=== PATIENT | female | born 1990 | race Caucasian/White ===

== ENCOUNTER → 2017-12-12 | Outpatient (CLI) | payer MEDICAID | LOC: FIMAGING 15:56 | PROVIDERS: ATTEND Orthopaedic Surgery Sports Medicine | DX: M25.852 Other specified joint disorders, left hip (principal); S73.192A Other sprain of left hip, initial encounter; M71.352 Other bursal cyst, left hip ==

== ENCOUNTER 2018-03-18 05:50 | Day surgery (SDC) | payer MEDICAID ==
--- NOTE | 2018-03-17 21:42 | PDGENHP ---
History and Physical - Chief Complaint Bilateral Hip Pain - History of Present Illness Diagnosis: 1. Bilateral~Femoroacetabular impingement (LUCINA) Cam type,~with~resultant labral tear 2. Family History of early onset Osteoarthritis (hips) HISTORY OF PRESENT ILLNESS: Sameeris a 27 y.o.~very~~active female~who I have had the pleasure to consult on today. 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 ~Sameerenjoys running, yoga, competitive volleyball (collegiate), cyclist. Lainey's~bilateral~hip pain (L>R)~started in 2012 (after running marathons), with~no~recalled trauma or injury, and with no~previous complaints. Sameer does not have~a known history of hip dysplasia. Presentation today is of~anterior~bilateral~hip pain. ~The hip~does not~wake her ~at night and does~click and catch on her. Sitting~can be a real struggle~for her.~Sameerdoes not~report suffering from lower back pain episodes. Sameerhas~participated in physical therapy (on and off for years)~and has~ tried other conservative measures including chiropractic treatments and massage therapy.~She~has not~received sufficient symptomatic improvement. Sameerhas~utilized medication for pain management, including NSAID.~ Sameerhas used medication since the pain began. Sameerunderstands that she~has a hip and pelvis problem which should be researched and wishes to get a better understanding of her~hip status, followed by an establishment of a treatment strategy, hoping sheMarkwould be able to get back to her~well being active life. History: Past medical history:~~ None which is relevant~ Relevant familial history:~Mother had bilateral VIDAL at 52/55 yrs Past surgical history:~ None Sameerhas never received general anesthesia. I have reviewed, verified and agree with the past medical, surgical, family and social history. Current Medications:~has a current medication list which includes the following prescription(s): adderall xr and multivitamin. ALLERGIES:~is allergic to sulfa (sulfonamide antibiotics). Objective: Physical Examination: Sameeris 5~feet 10~inches tall and weighs 183~Lbs. Sameeris AAO x3; she~ is well-nourished, in NAD. Skin is warm and dry. ~Breathing is non-labored. ~CV with RRR by pulse. Abdomen is soft, NTND. Currently,~she~walks with a normal~gait. Trendelenburg sign is~negative~and proprioception is normal,~both~sides. She~presents with mild~signs of joint laxity. Beightons Score:~1 Lower spine examination is~negative~for sciatic or femoral nerve irritation with negative~SLR &~femoral stretch tests. Range of motion of the spine is normal~for flexion, extension, and rotations, with no~associated pain. Strength, Sensation and pulses are~normal -~bilaterally Ankles and knees exams are~normal~and no~mal-alignment is evident. She~has no leg length discrepancy. Thigh circumference is~symmetric~with no evidence for muscle atrophy~on both~ sides. Hip ROM (degrees): FL ER At 90~hip FL IR At 90~hip FL AB AD EX IR Neutral hip ER Neutral hip R 100 45 15 40 10 5 45 30 L 100 50 10 45 5 5 45 30 Specific hip and pelvis tests: Impingement Test IRVING Roll Add. Longus R +++ +++ Negative Negative L +++ +++ Negative Negative Glut. Med ITB Posterior Imp R Negative 5/5 strength Negative 5/5 strength Negative L Negative 5/5 strength Negative 5/5 strength Negative Squeeze test measured~weak Bony Symphysis pubis is~pain free~to touch while concentric activity of the rectus abdominis, does not~produce pain at its insertion. Ilio Psos specific tests are~negative for pain during cycling for~both hips~and remarkable for non painful snap HF has~weakness, no pain~both hips. Anterior/posterior~capsule tenderness Bilateral Greater trochanteric burse is~pain free~on both hips. Piriformis tests: FAIR is~negative,~with no~local signs of neuritis related to sciatic nerve. SIJs examination is~normal~with normal~IRVING in relation and local tenderness. Hamstrings tests are~negative~functional contraction and negative~tendinopathy both hips. On a daily basis, the following percentages reflectThi's overall total pain: Deep hip:~100% Imaging: Radiology studies which I have personally reviewed, analyzed and measured are below: XR: AP of the hip and pelvis: Performed in a~good~technique Coccyx to pubic symphysis distance~2~cm. 5~degrees caudal [place] Lines are~preserved. Minimal~Pathological signs are seen in the Symphysis Pubis. Minimal~Pathological signs are seen at the Ischial tuberosity. ~ Specific measurements show: NSA~ LCE Sourcil~Angle Sharp's angle Lat. Cam Lat. Pincer C.Over~sign Head~Coverage % ATDmm R N 31 7 41 + - 12-1 N N L N 29 6 40 + - 12-12:30 N N Pos. wall sign ISS NAD ~~Dysplasia Comments R Negative Negative 7.7~mm Negative L Negative Negative 14~mm Negative Sclerosis Sup. Lat. OA Cysts Joint Space-WBZ Joint Space-Medial R Negative Negative Negative 3.3~mm 3.6~mm L Negative Negative Negative 3.6~mm 3.7~mm X Table lateral: Anterior cam lesion is~seen~on both hips. Alpha Angle: ~ Right~60~dergrees Left~78~degrees Impression and plan:Mark Estrellais a 27 y.o.~active female~suffering from symptomatic Bilateral~hip pain due to~Femoroacetabular impingement (LUCINA)~Cam type,~with~resultant labral tear~causing significant disability to her~and altering her~sport and life activities. Physical examination, imaging, and~her~story correspond with the diagnosis mentioned above. I explained that femoroacetabular impingement (LUCINA) arises due to a bony or soft tissue conflict between the femur (ball) and acetabulum (socket) caused by an abnormality in the shape of the hip joint. Over time, repetitive impingement can result in damage to the labrum and adjacent surface cartilage within the socket, ultimately giving rise to progressive osteoarthritis of the hip. I explained that although a labral tear can be a source of pain, it is rarely the root of the problem and typically occurs secondary to an underlying abnormality in the shape and mechanics of the hip joint. ~ I reviewed conservative treatment options for LUCINA including activity modification to avoid positions of impingement, physical therapy, non-steroidal anti-inflammatory medications, and various injections (corticosteroid and PRP) aimed at reducing inflammation in the hip joint or/and preventing dynamic impingement. PRP injections may promote healing and reduce symptoms in certain cases but it will not repair chronically damaged tissue. Although these measures may help to buy time and reduce current level of symptoms, they are not a definitive solution to the problem given the underlying abnormality in the shape of the hip joint. Patients who have failed conservative management and continue to experience symptoms are candidates for hip arthroscopy, a minimally invasive surgery that can definitively address the underlying problem. Hip arthroscopy typically includes treating the labrum with either repair or reconstruction of the torn labrum; as well as addressing the underlying abnormalities by restoring the normal shape to the hip joint. ~If the cartilage is damaged a Microfracture surgical procedure may also be necessary to help stimulate the growth of fibrocartilage. ~If a patient requires a labral reconstruction or a Microfracture, the initial rehabilitation from the surgery may take longer, but the long-term results are typically favorable. I reviewed the technical aspects of hip arthroscopy including risks, benefits, and expected course of recovery.~Lainey~understands that hip arthroscopy is a minimally invasive outpatient procedure carried out through small incisions on the outer aspect of the hip joint. During surgery, the labral tear will be identified and either repaired or reconstructed~using bone anchors and suture material. Additionally, any excessive bone will be removed with a high-speed yolanda to reshape the hip joint and restore normal anatomy. Risks include infection, bleeding, injury to nearby nerves or vessels, stiffness, persistent pain, instability, venous thromboembolic disease, and traction related complications including temporary foot numbness. Rarely, revision surgery may be required to address these problems. Overall recovery takes approximately 4~ 8~months depending on the extent of damage and degree of repair. In the event that the labral tissue quality is inadequate for successful repair and healing,~Lainey~understands that a labral reconstruction will be performed. This procedure entails placing a cadaver tissue graft within the hip joint and stabilizing it with bone anchors to build a new labrum. The overall recovery time for labral reconstruction is similar to that of labral repair, although the surgical procedure takes longer to perform. Lainey~will review the info presented. In order to obtain more detailed information regarding the alignment, orientation, and shape of the bony hip and pelvis I will order a CT scan to be performed. The results of the CT scan, including femoral torsion and acetabular version measured values and 3D images, will aid me in deciding on the best treatment strategy and surgical pre-planning. In order to better evaluate the soft tissues and cartilage of the hip joint, I will order an MRI scan. Sameerwill contact us if she~wishes to pursue further treatment in the future. Sameeris happy with this plan. I have also supplied~her~with handouts, outlining the expected surgical treatment and rehab involved. I wish~LaineyMarkall the best, ~~ Lakhwinder Sandoval, PAC History Information - Allergies/Home Medication List Allergies/Adverse Reactions: Sulfa (Sulfonamide Antibiotics) Allergy (Verified 02/18/18 11:01) Hives Home Medications: Adderall 10 MG (*) PRN 02/18/18 [Last Taken Unknown] Multivitamin (*) 02/18/18 [Last Taken Unknown] I have personally reviewed and updated: medical history - Social History Smoking Status: Never smoked Review of Systems Review of Systems: Physical Exam Physical Exam:
[2018-03-18] MEDS ORDERED: ACETAMINOPHEN 500 MG TAB PO ONE (06:03)
[2018-03-18] MEDS ORDERED: LIDOCAINE 1% 2 ML INJ ID PRN (06:03)
[2018-03-18] MEDS ORDERED: PREGABALIN 150 MG CAP PO ONE (06:03)
[2018-03-18] MEDS ORDERED: LR 1,000 ML IV ONE (06:03)
[2018-03-18] MEDS ORDERED: ceFAZolin 2 GM/DEXTROSE 100 ML IV ONE (06:03)
[2018-03-18] MEDS ORDERED: EPINEPHrine 30 MG/30 ML MDV (0.1 MG/0.1 ML) ONE (06:49)
[2018-03-18] MEDS ORDERED: BUPIVACAINE 0.25% 30 ML SDV ONE (06:49)
[2018-03-18] MEDS ORDERED: PROPOFOL/EMULSION 500 MG/50 ML BOTTLE IV ONE ×2 (07:15→07:37)
[2018-03-18] MEDS ORDERED: MIDAZOLAM 2 MG/2 ML VIAL ONE (07:15)
[2018-03-18] MEDS ORDERED: fentaNYL 100 MCG/2 ML INJ ONE ×2 (07:15→11:04)
[2018-03-18] MEDS ORDERED: DEXMEDETOMIDINE HCL 400 MCG in NS 100 ML IV ONE (08:00)
[2018-03-18] MEDS ORDERED: METOCLOPRAMIDE 10 MG/2 ML VIAL ONE (08:02)
[2018-03-18] MEDS ORDERED: SUGAMMADEX SODIUM 200 MG/2 ML VIAL IVP ONE (08:02)
[2018-03-18] MEDS ORDERED: ONDANSETRON 4 MG/2 ML VIAL ONE (08:02)
[2018-03-18] MEDS ORDERED: KETOROLAC 30 MG/1 ML SDV ONE (08:02)
[2018-03-18] MEDS ORDERED: RANITIDINE 50 MG/2 ML VIAL ONE (08:02)
[2018-03-18] MEDS ORDERED: ROCURONIUM 100 MG/10 ML VIAL ONE (08:02)
--- NOTE | 2018-03-18 08:04 | PDANEPAE ---
ANE Past Medical History - Cardiovascular History Hx Hypertension: No Hx Arrhythmias: Yes Hx Chest Pain: No Hx Coronary Artery / Peripheral Vascular Disease: No Hx CHF / Valvular Disease: No Hx Palpitations: No Cardiovascular History Comment: slight heart murmur, pt says it isn't always noticeable. bradycardia - Pulmonary History Hx COPD: No Hx Asthma/Reactive Airway Disease: No Hx Recent Upper Respiratory Infection: No Hx Oxygen in Use at Home: No Hx Sleep Apnea: No Sleep Apnea Screening Result - Last Documented: Negative - Neurologic History Hx Cerebrovascular Accident: No Hx Seizures: No Hx Dementia: No - Endocrine History Hx Diabetes: No - Renal History Hx Renal Disorders: No - Liver History Hx Hepatic Disorders: No - Neurological & Psychiatric Hx Hx Neurological and Psychiatric Disorders: Yes Neurological / Psychiatric History Comment: claustraphbia. hx of depression- currently no issues - Cancer History Hx Cancer: No - Congenital Disorder History Hx Congenital Disorders: No - GI History Hx Gastrointestinal Disorders: Yes Gastrointestinal History Comment: hx of gi parasites d/t being in [facility] - Other Health History Other Health History: na - Chronic Pain History Chronic Pain: Yes (bilateral hips) - Surgical History Prior Surgeries: extensive dental surgery 2008. hemorrhoidectomy 2012 ANE Review of Systems Review of Systems: - Exercise capacity METS (RN): 6 METS ANE Patient History - Allergies Allergies/Adverse Reactions: Sulfa (Sulfonamide Antibiotics) Allergy (Verified 02/18/18 11:01) Hives - Home Medications Home Medications: Adderall 10 MG (*) PRN 02/18/18 [Last Taken 03/17/18] Multivitamin (*) 02/18/18 [Last Taken 03/17/18] - NPO status NPO Since - Liquids (Date): 03/18/18 NPO Since - Liquids (Time): 02:10 NPO Since - Solids (Date): 03/17/18 NPO Since - Solids (Time): 21:00 - Smoking Hx Smoking Status: Never smoked - Family Anes Hx Family Hx Anesthesia Complications: mother has similiar issues ANE Labs/Vital Signs - Vital Signs Blood Pressure: 115/69 Heart Rate: 71 Respiratory Rate: 16 O2 Sat (%): 96 Height: 177.8 cm Weight: 83.915 kg ANE Physical Exam - Airway Neck exam: FROM Mallampati Score: Class 1 Mouth exam: normal dental/mouth exam - Pulmonary Pulmonary: no respiratory distress, no rales or rhonchi, clear to auscultation - Cardiovascular Cardiovascular: regular rate and rhythym, no murmur, rub, or gallop - ASA Status ASA Status: I ANE Anesthesia Plan Anesthesia Plan: general endotracheal anesthesia
[2018-03-18] MEDS ORDERED: ACETAMINOPHEN 500 MG TAB PO PRN (09:44)
[2018-03-18] MEDS ORDERED: MEPERIDINE 25 MG/0.5 ML AMP IVP PRN (09:44)
[2018-03-18] MEDS ORDERED: LR 500 ML IV PRN (09:44)
[2018-03-18] MEDS ORDERED: METOCLOPRAMIDE 10 MG/2 ML VIAL IVP PRN (09:44)
[2018-03-18] MEDS ORDERED: HYDROCODONE/APAP 5/325 TAB PO PRN (09:44)
[2018-03-18] MEDS ORDERED: NALOXONE HCL 0.4 MG/ML INJ IVP PRN (09:44)
[2018-03-18] MEDS ORDERED: ONDANSETRON 4 MG/2 ML VIAL IVP PRN (09:44)
[2018-03-18] MEDS ORDERED: ALBUTEROL 3 ML DEYVIAL IH PRN (09:44)
[2018-03-18] MEDS ORDERED: PROMETHAZINE HCL 25 MG/ML INJ IVP PRN (09:44)
[2018-03-18] MEDS ORDERED: oxyCODONE IR 5 MG TAB PO PRN (09:44)
[2018-03-18] MEDS ORDERED: DIAZEPAM 5 MG/ML 1 ML SYR IVP PRN (09:44)
--- NOTE | 2018-03-18 10:49 | POSTOPPROG ---
Post Op Note Date of Operation: 03/18/18 Surgeon: Marlon [employer] Manager: Dr. Ventura Anesthesia: GET(General Endotracheal) Pre-op Diagnosis: Bilateral LUCINA Post-op Diagnosis: Bilateral LUCINA Procedure: Right Hip Arthroscopy Inf/Abcess present in the surg proc area at time of surgery?: No EBL: Minimal
[2018-03-18] MEDS: fentaNYL 100 MCG/2 ML INJ IVP PRN ×2 (11:05→11:26)
[2018-03-18] MEDS ORDERED: HYDROCODONE/APAP 5/325 TAB ONE (11:36)
--- NOTE | 2018-03-18 11:57 | POSTANESTH ---
Post Anesthetic Evaluation Cardiovascular Status: Normal, Stable, Similar to Pre-Op Cond Respiratory Status: Normal, Stable, Similar to Pre-op Cond. Level of Consciousness/Mental Status: Mildly Sleepy, Arousable Pain Control: Adequate, Prn Tx Ordered Nausea/Vomiting Control: Adequate, Prn Tx Ordered Complications Possibly Related to Anesthesia: None Noted
[2018-03-18 12:45] VITALS: BP 96/62
== END 2018-03-18 12:53 | disposition home or self-care (01) ==
LOC: FSGY 05:50
PROVIDERS: ATTEND Orthopaedic Surgery Sports Medicine
PROC: BQ101ZZ Fluoroscopy of Right Hip using Low Osmolar Contrast (ICD-10-PCS; principal; 2018-03-18 07:15)
PROC: 0SQ94ZZ Repair Right Hip Joint, Percutaneous Endoscopic Approach (ICD-10-PCS; principal; 2018-03-18 07:15)
PROC: 0SB94ZZ Excision of Right Hip Joint, Percutaneous Endoscopic Approach (ICD-10-PCS; principal; 2018-03-18 07:15)
DX: M25.851 Other specified joint disorders, right hip (principal)
CPT/HCPCS: C1713; J0171; J0690; J1885; J2250; J2405; J2704; J2765; J2780; J3010

== ENCOUNTER 2018-06-28 09:35 | Day surgery (SDC) | payer MEDICAID ==
--- NOTE | 2018-06-27 21:39 | PDGENHP ---
History and Physical - Chief Complaint LEFT HIP PAIN - History of Present Illness 1. Bilateral~Femoroacetabular impingement (LUCINA) Cam type,~with~resultant labral tear 2. Family History of early onset Osteoarthritis (hips) 3. History of Right Hip Arthroscopy HISTORY OF PRESENT ILLNESS: Sameeris a 27 y.o.~very~~active female~who I have had the pleasure to consult on today. 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 ~Sameerenjoys running, yoga, competitive volleyball (collegiate), cyclist. Lainey's~bilateral~hip pain ~started in 2012 (after running marathons), with~ no~recalled trauma or injury, and with no~previous complaints. Sameerdoes not have~a known history of hip dysplasia. Presentation today is of~anterior~bilateral~hip pain. ~The hip~does not~wake her ~at night and does~click and catch on her. Sitting~can be a real struggle~for her.~Sameerdoes not~report suffering from lower back pain episodes. Sameerhas~participated in physical therapy (on and off for years)~and has~ tried other conservative measures including chiropractic treatments and massage therapy.~Susan~has not~received sufficient symptomatic improvement. Sameerhas~utilized medication for pain management, including NSAID.~ Sameerhas used medication since the pain began. Sameerunderstands that she~has a hip and pelvis problem which should be researched and wishes to get a better understanding of her~hip status, followed by an establishment of a treatment strategy, hoping sheMarkwould be able to get back to her~well being active life. History: Past medical history:~~ None which is relevant~ Relevant familial history:~Mother had bilateral VIDAL at 52/55 yrs Past surgical history:~ None Sameerhas never received general anesthesia. I have reviewed, verified and agree with the past medical, surgical, family and social history. Current Medications:~has a current medication list which includes the following prescription(s): adderall xr and multivitamin. ALLERGIES:~is allergic to sulfa (sulfonamide antibiotics). Objective: Physical Examination: Sameeris 5~feet 10~inches tall and weighs 183~Lbs. Sameeris AAO x3; she~ is well-nourished, in NAD. Skin is warm and dry. ~Breathing is non-labored. ~CV with RRR by pulse. Abdomen is soft, NTND. Currently,~she~walks with a normal~gait. Trendelenburg sign is~negative~and proprioception is normal,~both~sides. She~presents with mild~signs of joint laxity. Beightons Score:~1 Lower spine examination is~negative~for sciatic or femoral nerve irritation with negative~SLR &~femoral stretch tests. Range of motion of the spine is normal~for flexion, extension, and rotations, with no~associated pain. Strength, Sensation and pulses are~normal -~bilaterally Ankles and knees exams are~normal~and no~mal-alignment is evident. She~has no leg length discrepancy. Thigh circumference is~symmetric~with no evidence for muscle atrophy~on both~ sides. Hip ROM (degrees): FL ER At 90~hip FL IR At 90~hip FL AB AD EX IR Neutral hip ER Neutral hip R 100 45 15 40 10 5 45 30 L 100 50 10 45 5 5 45 30 Specific hip and pelvis tests: Impingement Test IRVING Roll Add. Longus R +++ +++ Negative Negative L +++ +++ Negative Negative Glut. Med ITB Posterior Imp R Negative 5/5 strength Negative 5/5 strength Negative L Negative 5/5 strength Negative 5/5 strength Negative Squeeze test measured~weak Bony Symphysis pubis is~pain free~to touch while concentric activity of the rectus abdominis, does not~produce pain at its insertion. Ilio Psos specific tests are~negative for pain during cycling for~both hips~and remarkable for non painful snap HF has~weakness, no pain~both hips. Anterior/posterior~capsule tenderness Bilateral Greater trochanteric burse is~pain free~on both hips. Piriformis tests: FAIR is~negative,~with no~local signs of neuritis related to sciatic nerve. SIJs examination is~normal~with normal~IRVING in relation and local tenderness. Hamstrings tests are~negative~functional contraction and negative~tendinopathy both hips. On a daily basis, the following percentages reflectThi's overall total pain: Deep hip:~100% Imaging: Radiology studies which I have personally reviewed, analyzed and measured are below: XR: AP of the hip and pelvis: Performed in a~good~technique Coccyx to pubic symphysis distance~2~cm. 5~degrees caudal [place] Lines are~preserved. Minimal~Pathological signs are seen in the Symphysis Pubis. Minimal~Pathological signs are seen at the Ischial tuberosity. ~ Specific measurements show: NSA~ LCE Sourcil~Angle Sharp's angle Lat. Cam Lat. Pincer C.Over~sign Head~Coverage % ATDmm R N 31 7 41 + - 12-1 N N L N 29 6 40 + - 12-12:30 N N Pos. wall sign ISS NAD ~~Dysplasia Comments R Negative Negative 7.7~mm Negative L Negative Negative 14~mm Negative Sclerosis Sup. Lat. OA Cysts Joint Space-WBZ Joint Space-Medial R Negative Negative Negative 3.3~mm 3.6~mm L Negative Negative Negative 3.6~mm 3.7~mm X Table lateral: Anterior cam lesion is~seen~on both hips. Alpha Angle: ~ Right~60~dergrees Left~78~degrees Impression and plan:Mark Estrellais a 27 y.o.~active female~suffering from symptomatic Bilateral~hip pain due to~Femoroacetabular impingement (LUCINA)~Cam type,~with~resultant labral tear~causing significant disability to her~and altering her~sport and life activities. Physical examination, imaging, and~her~story correspond with the diagnosis mentioned above. I explained that femoroacetabular impingement (LUCINA) arises due to a bony or soft tissue conflict between the femur (ball) and acetabulum (socket) caused by an abnormality in the shape of the hip joint. Over time, repetitive impingement can result in damage to the labrum and adjacent surface cartilage within the socket, ultimately giving rise to progressive osteoarthritis of the hip. I explained that although a labral tear can be a source of pain, it is rarely the root of the problem and typically occurs secondary to an underlying abnormality in the shape and mechanics of the hip joint. ~ I reviewed conservative treatment options for LUCINA including activity modification to avoid positions of impingement, physical therapy, non-steroidal anti-inflammatory medications, and various injections (corticosteroid and PRP) aimed at reducing inflammation in the hip joint or/and preventing dynamic impingement. PRP injections may promote healing and reduce symptoms in certain cases but it will not repair chronically damaged tissue. Although these measures may help to buy time and reduce current level of symptoms, they are not a definitive solution to the problem given the underlying abnormality in the shape of the hip joint. Patients who have failed conservative management and continue to experience symptoms are candidates for hip arthroscopy, a minimally invasive surgery that can definitively address the underlying problem. Hip arthroscopy typically includes treating the labrum with either repair or reconstruction of the torn labrum; as well as addressing the underlying abnormalities by restoring the normal shape to the hip joint. ~If the cartilage is damaged a Microfracture surgical procedure may also be necessary to help stimulate the growth of fibrocartilage. ~If a patient requires a labral reconstruction or a Microfracture, the initial rehabilitation from the surgery may take longer, but the jail results are typically favorable. I reviewed the technical aspects of hip arthroscopy including risks, benefits, and expected course of recovery.~Lainey~understands that hip arthroscopy is a minimally invasive outpatient procedure carried out through small incisions on the outer aspect of the hip joint. During surgery, the labral tear will be identified and either repaired or reconstructed~using bone anchors and suture material. Additionally, any excessive bone will be removed with a high-speed yolanda to reshape the hip joint and restore normal anatomy. Risks include infection, bleeding, injury to nearby nerves or vessels, stiffness, persistent pain, instability, venous thromboembolic disease, and traction related complications including temporary foot numbness. Rarely, revision surgery may be required to address these problems. Overall recovery takes approximately 4~ 8~months depending on the extent of damage and degree of repair. In the event that the labral tissue quality is inadequate for successful repair and healing,~Lainey~understands that a labral reconstruction will be performed. This procedure entails placing a cadaver tissue graft within the hip joint and stabilizing it with bone anchors to build a new labrum. The overall recovery time for labral reconstruction is similar to that of labral repair, although the surgical procedure takes longer to perform. Lainey~will review the info presented. In order to obtain more detailed information regarding the alignment, orientation, and shape of the bony hip and pelvis I will order a CT scan to be performed. The results of the CT scan, including femoral torsion and acetabular version measured values and 3D images, will aid me in deciding on the best treatment strategy and surgical pre-planning. In order to better evaluate the soft tissues and cartilage of the hip joint, I will order an MRI scan. Sameerwill contact us if she~wishes to pursue further treatment in the future. Sameeris happy with this plan. I have also supplied~her~with handouts, outlining the expected surgical treatment and rehab involved. I wish~LaineyMarkall the best, ~~ Lakhwinder Sandoval, PAC History Information - Allergies/Home Medication List Allergies/Adverse Reactions: Sulfa (Sulfonamide Antibiotics) Allergy (Verified 02/18/18 11:01) Hives Home Medications: Adderall 10 MG (*) PRN 02/18/18 [Last Taken 03/17/18] Multivitamin (*) 02/18/18 [Last Taken 03/17/18] I have personally reviewed and updated: medical history - Social History Smoking Status: Never smoked Review of Systems Review of Systems: Physical Exam Physical Exam:
[2018-06-28] MEDS ORDERED: PREGABALIN 150 MG CAP PO ONE (09:48)
[2018-06-28] MEDS ORDERED: ACETAMINOPHEN 500 MG TAB PO ONE (09:48)
[2018-06-28] MEDS ORDERED: ceFAZolin 2 GM/DEXTROSE 100 ML IV ONE (09:48)
[2018-06-28] MEDS ORDERED: BUPIVACAINE/EPI 0.25% 30 ML SDV ONE (10:06)
[2018-06-28] MEDS ORDERED: MIDAZOLAM 2 MG/2 ML VIAL IVP ONE (10:54)
[2018-06-28] MEDS ORDERED: PROMETHAZINE HCL 25 MG/ML INJ IVP PRN (11:05)
[2018-06-28] MEDS ORDERED: METOCLOPRAMIDE 10 MG/2 ML VIAL IVP PRN (11:05)
[2018-06-28] MEDS ORDERED: LR 500 ML IV PRN (11:05)
[2018-06-28] MEDS ORDERED: HYDROCODONE/APAP 5/325 TAB PO PRN (11:05)
[2018-06-28] MEDS ORDERED: NALOXONE HCL 0.4 MG/ML INJ IVP PRN (11:05)
[2018-06-28] MEDS ORDERED: LABETALOL HCL 5 MG/ML 20 ML MDV IVP PRN (11:05)
[2018-06-28] MEDS ORDERED: PHENYLEPHRINE HCL 100 MCG/ML SYR IVP PRN (11:05)
[2018-06-28] MEDS ORDERED: DEXAMETHASONE 4 MG/ML VIAL IVP PRN (11:05)
[2018-06-28] MEDS ORDERED: ONDANSETRON 4 MG/2 ML VIAL IVP PRN (11:05)
[2018-06-28] MEDS ORDERED: ALBUTEROL 3 ML DEYVIAL IH PRN (11:05)
[2018-06-28] MEDS ORDERED: oxyCODONE IR 5 MG TAB PO PRN (11:05)
--- NOTE | 2018-06-28 11:43 | PDANEPAE ---
ANE History of Present Illness L hip scope ANE Past Medical History - Cardiovascular History Hx Hypertension: No Hx Arrhythmias: No Hx Chest Pain: No Hx Coronary Artery / Peripheral Vascular Disease: No Hx CHF / Valvular Disease: No Hx Palpitations: No Cardiovascular History Comment: slight heart murmur, pt says it isn't always noticeable. bradycardia - Pulmonary History Hx COPD: No Hx Asthma/Reactive Airway Disease: No Hx Recent Upper Respiratory Infection: No Hx Oxygen in Use at Home: No Hx Sleep Apnea: No Sleep Apnea Screening Result - Last Documented: Negative - Neurologic History Hx Cerebrovascular Accident: No Hx Seizures: No Hx Dementia: No - Endocrine History Hx Diabetes: No - Renal History Hx Renal Disorders: No - Liver History Hx Hepatic Disorders: No - Neurological & Psychiatric Hx Hx Neurological and Psychiatric Disorders: Yes Neurological / Psychiatric History Comment: claustraphobia. hx of depression/ with increased anxiety- currently no issues - Cancer History Hx Cancer: No - Congenital Disorder History Hx Congenital Disorders: No - GI History Hx Gastrointestinal Disorders: No Gastrointestinal History Comment: hx of gi parasites d/t being in [facility]. [facility] - Other Health History Other Health History: none - Chronic Pain History Chronic Pain: No - Surgical History Prior Surgeries: extensive dental surgery 2007. hemorrhoidectomy 2013. 03/26 fx femur ANE Review of Systems Review of Systems: - Exercise capacity METS (RN): 6 METS ANE Patient History - Allergies Allergies/Adverse Reactions: Sulfa (Sulfonamide Antibiotics) Allergy (Verified 02/18/18 11:01) Hives - Home Medications Home medications: home medication list seen and reviewed Home Medications: Adderall 10 MG (*) PRN 02/18/18 [Last Taken 03/17/18] Multivitamin (*) 02/18/18 [Last Taken 03/17/18] - NPO status NPO Status: no food or drink >8 hours NPO Since - Liquids (Date): 06/28/18 NPO Since - Liquids (Time): 05:00 NPO Since - Solids (Date): 06/27/18 NPO Since - Solids (Time): 23:55 - Anes Hx Anes Hx: no prior problems - Smoking Hx Smoking Status: Never smoked - Alcohol Use Alcohol Use: Rarely - Family Anes Hx Family Hx Anesthesia Complications: mother has similiar issues ANE Labs/Vital Signs - Vital Signs Blood Pressure: 126/77 Heart Rate: 87 Respiratory Rate: 16 O2 Sat (%): 99 Height: 177.8 cm Weight: 83.915 kg ANE Physical Exam - Airway Neck exam: FROM Mallampati Score: Class 2 Mouth exam: normal dental/mouth exam - Pulmonary Pulmonary: no respiratory distress - Cardiovascular Cardiovascular: regular rate and rhythym - ASA Status ASA Status: I ANE Anesthesia Plan Anesthesia Plan: GA w LMA
[2018-06-28] MEDS ORDERED: PROPOFOL/EMULSION 500 MG/50 ML BOTTLE IV ONE ×2 (12:26→13:59)
[2018-06-28] MEDS ORDERED: DEXAMETHASONE 4 MG/ML VIAL ONE ×2 (12:26)
[2018-06-28] MEDS ORDERED: fentaNYL 100 MCG/2 ML INJ ONE ×2 (12:26→17:20)
[2018-06-28] MEDS ORDERED: LIDOCAINE 2% 100 MG/5 ML SYR ONE (12:27)
[2018-06-28] MEDS ORDERED: ONDANSETRON 4 MG/2 ML VIAL ONE ×2 (12:27→17:58)
[2018-06-28] MEDS ORDERED: PROPOFOL 200 MG/20 ML VIAL ONE (16:02)
--- NOTE | 2018-06-28 17:18 | POSTOPPROG ---
Post Op Note Date of Operation: 06/28/18 Surgeon: Marlon Ely Senior [employer] Analyst: Dr. Ventura Anesthesia: GET(General Endotracheal) Pre-op Diagnosis: Left LUCINA Post-op Diagnosis: Left LUCINA Procedure: Left Hip arthroscopy Inf/Abcess present in the surg proc area at time of surgery?: No
[2018-06-28] MEDS: fentaNYL 100 MCG/2 ML INJ IVP PRN ×2 (17:24→18:01)
[2018-06-28] MEDS ORDERED: oxyCODONE IR 5 MG TAB ONE (17:55)
[2018-06-28] MEDS ORDERED: EPINEPHrine 30 MG/30 ML MDV (0.1 MG/0.1 ML) ONE (18:12)
[2018-06-28 18:55] VITALS: BP 132/87
--- NOTE | 2018-06-28 19:31 | POSTANESTH ---
Post Anesthetic Evaluation Cardiovascular Status: Normal, Stable Respiratory Status: Normal, Stable Level of Consciousness/Mental Status: Can Participate in Eval Pain Control: Adequate, Prn Tx Ordered Nausea/Vomiting Control: Adequate, Prn Tx Ordered Complications Possibly Related to Anesthesia: None Noted
== END 2018-06-28 18:45 | disposition home or self-care (01) ==
LOC: FSGY 09:35
PROVIDERS: ATTEND Orthopaedic Surgery Sports Medicine
PROC: 0QQ54ZZ Repair Left Acetabulum, Percutaneous Endoscopic Approach (ICD-10-PCS; principal; 2018-06-28 11:00)
DX: M25.852 Other specified joint disorders, left hip (principal); Q65.89 Other specified congenital deformities of hip
CPT/HCPCS: C1713; J0171; J0690; J1100; J2001; J2250; J2405; J2704; J3010